=== PATIENT | female | born 1990 | race Caucasian/White ===

== ENCOUNTER → 2022-05-29 | Outpatient (CLI) | payer OTHER ==
[~2022-05-29] VITALS: Ht 177.8 cm; Wt 80.9 kg
[~2022-05-29] MED LIST: IBU800 M1 PO; PRENATAL TABLET PO
[2022-05-29 18:10] VITALS: BP 129/79; PULSE 82; TEMP 98.1
[2022-05-29 19:00] VITALS: BP 107/60; PULSE 80
== END ==
LOC: LDRO 17:39
DX: O36.8130 Decreased fetal movements, third trimester, not applicable or unspecified (principal); Z3A.35 35 weeks gestation of pregnancy

== ENCOUNTER 2022-05-31 00:10 | Inpatient (IN) | payer OTHER ==
[2022-05-31] VITALS (32 sets, daily range): BP systolic 101–139; BP diastolic 57–88; PULSE 64–99; TEMP 97.5–98.2
[~2022-05-31] VITALS: Ht 177.8 cm; Wt 80.9 kg
--- NOTE | 2022-05-31 00:15 | NUR ---
G4L3 at 39 weeks arrives to unit with complaint of spontaneous rupture of membranes around 2315. Pt reports fluid has been clear, states she is feeling mild contractions but has a history of fast labors. Pt reports good movement, denies vaginal bleeding. Denies problems this . Has had 3 uncomplicated vaginal deliveries. Clean gown on. Pt oriented to room, call light within reach, bed in low and locked position. US and toco explained and applied. Admission assessment started. Vitals obtained. Amnitrace positive and grossly ruptured. SVE 1/-3, vertex position.
--- NOTE | 2022-05-31 00:45 | NUR ---
18G IV started in left forearm with 1 attempt. Admission labs obtained off IV start. Lactated ringers infusing to gravity. 0100 - Consents reviewed and signed with patient. All questions answered. Lavern Brown CRNA called to hospital for epidural.
[2022-05-31 01:02] LABS: BASO # 0.1 K/mm3 (0.0-0.2); BASO % 0.5 % (0.0-2.0); EOS # 0.1 K/mm3 (0.0-0.7); EOS % 1.1 % (0.0-4.0); GRAN # 7.9 K/mm3 (1.4-6.5); GRAN % 64.5 % (42.2-75.2); LYMPH # 3.3 K/mm3 (1.2-3.4); LYMPH % 27.1 % (20.0-51.0); MEAN CELL VOLUME 90 fl (80.0-100.0); MEAN CORPUSCULAR HEMOGLOBIN 30 pg (27-31); MEAN CORPUSCULAR HGB CONC 33 g/dl (33.0-37.0); MEAN PLATELET VOLUME 10.9 fl (7.4-10.4); MONO # 0.8 K/mm3 (0.1-0.6); MONO % 6.5 % (1.7-9.3); PLATELET COUNT 263 K/mm3 (130-400); RED BLOOD COUNT 3.99 M/mm3 (4.10-5.30); REDCELL DISTRIBUTION WIDTH-CV 13.1 % (11.5-14.5)
[2022-05-31] MEDS ORDERED: PRENATAL TABLET PO (01:22)
--- NOTE | 2022-05-31 01:51 | NUR ---
0145 - Lavern Brown CRNA to bedside for epidural placement. Pt positioned to sitting on edge of bed. Epidural procedure, risks, and benefits reviewed with patient, verbalized understanding. 0151 - Single shot by Sara Brown CRNA. Pt denies any adverse reactions. 0200 - Pt positioned to left lateral with pillow support for comfort. Safety precautions reviewed. Bed in low and locked position, call light within reach. See anesthesia record.
--- NOTE | 2022-05-31 03:05 | NUR ---
Recurrent early and variable decelerations noted with contractions. SVE /-3, repositioned to left lateral.
--- NOTE | 2022-05-31 04:05 | NUR ---
Recurrent early decelerations noted with contractions. SVE /-3 repositioned to right lateral.
--- NOTE | 2022-05-31 04:35 | NUR ---
Recurrent early and variable decelerations noted with contractions. Pt reports feeling more pain and pressure with contractions. SVE /-3
--- NOTE | 2022-05-31 05:30 | NUR ---
Intermittent early decelerations noted with contractions. Pt reports more pressure. SVE /0. Roles on unit, notified.
--- NOTE | 2022-05-31 05:49 | NUR ---
0542 - Pt calls out stating she has an urge to push. SVE complete/+2. Dr. Lux on unit, notified to come to bedside. Nursery RN Neville Sr notified. 0544 - Rgay catheter removed, 1000 mL clear yellow urine out. 0545 - Room set up for delivery, bed broke down, Dr. Lux gowned and gloved at perineum. Pt instructed on pushing techniques, verbalized understanding. Neville Sr RN at bedside. 0549 - Initial push with contraction. Spontaneous delivery of viable infant boy. placed to mothers abdomen. Care of assumed to CNADICE Nunes. Cord clamped x [address] Lux and cut be FOB. Cord blood obtained. 0552 - Spontaneous delivery of intact placenta. Bleeding WNL. Fundus down 3 from umbilicus. Pt uncomfortable and states that she can feel everything. Dr. Lux requesting lidocaine. 0555 - Lidocaine to perineum. Second degree laceration repaired by Dr. Lux, bleeding remains minimal. No need for PP pitocin at this time per Dr. Lux. EBL 100. 0600 - Pericare provided. New chux and ice pack beneath patient. Pt repositioned in bed for comfort. recovery started. See anesthesia record and physician delivery note.
[2022-06-01 01:45] VITALS: BP 101/64; PULSE 65; TEMP 97.8
[2022-06-01 05:35] VITALS: BP 109/60; PULSE 66; TEMP 97.9
[2022-06-01 07:45] VITALS: BP 114/76; PULSE 82; TEMP 98.2
--- NOTE | 2022-06-01 09:27 | NUR ---
Initial visit; Patient thanked [employer] for offering congratulations and God's blessings for the of their son. [employer] thanked family for choosing [place].
[2022-06-01] MEDS ORDERED: IBU800 M1 PO (10:27)
== END 2022-06-01 13:36 | disposition home or self-care (01) | DRG 807 ==
LOC: LDRO 00:10 → LDR 00:50 → OB 00:50
PROVIDERS: Obstetrics & Gynecology; ADMIT Obstetrics & Gynecology
PROC: 10E0XZZ Delivery of Products of Conception, External Approach (ICD-10-PCS; principal; 2022-05-31)
PROC: 0KQM0ZZ Repair Perineum Muscle, Open Approach (ICD-10-PCS; 2022-05-31)
DX: O76 Abnormality in fetal heart rate and rhythm complicating labor and delivery (principal); Z37.0 Single live birth; O70.1 Second degree perineal laceration during delivery; Z3A.39 39 weeks gestation of pregnancy; O99.824 Streptococcus B carrier state complicating childbirth; Z88.0 Allergy status to penicillin
CPT/HCPCS: J2590; J7120